=== PATIENT | male | born 1960 | race Asian ===

== ENCOUNTER 2019-04-01 10:41 | Emergency (ER) | payer BC ==
[2019-04-01] MEDS ORDERED: IBUPROFEN 600 MG TABLET PO ONE (11:51)
--- NOTE | 2019-04-01 11:51 | ER Document Report ---
ED Fall - General Chief Complaint: Fall Stated Complaint: FALL Time Seen by Provider: 04/01/19 11:43 TRAVEL OUTSIDE OF THE [place] IN LAST 30 DAYS: No - HPI Notes: Patient is a 58-year-old male that presents to the emergency department for chief complaint of right rib pain. Patient does speak some Faroese but is being assisted by family and translating. I did offer formal translation services which were declined. Family states patient was walking yesterday and tripped falling sideways and landing on his right side. He hit his right rib cage on the ground. He did not lose consciousness or hit his head. Patient has had a sharp pain in his right posterior rib cage since the fall. The pain is worse with movement and deep inspiration. He denies any shortness of breath or difficulty breathing. He denies any nausea, vomiting, numbness, weakness and vision changes. Patient also states his neck feels stiff when moving. Patient did take Tylenol 1000 mg at 830 this morning with some symptomatic improvement Past Medical History: Reviewed in chart Past Surgical History: Reviewed in chart Social History: Lives at home independently with family. Denies drugs alcohol or tobacco Family History: Reviewed and noncontributory for presenting illness Allergies: Reviewed, see documented allergy list. REVIEW OF SYSTEMS: CONSTITUTIONAL : No fever No chills No diaphoresis No recent illness EENT: No vision changes No congestion No sore throat CARDIOVASCULAR: No chest pain No palpitations RESPIRATORY: No shortness of breath No cough No difficulty breathing GASTROINTESTINAL: No abdominal pain No nausea No vomiting No diarrhea GENITOURINARY: No dysuria No hematuria No difficulty urinating MUSCULOSKELETAL: No back pain No leg pain Neck pain Right rib pain No arm pain SKIN: No rashes No lesions LYMPHATIC: No swollen, enlarged glands. NEUROLOGICAL: No lightheadedness No headache No weakness No paresthesias PSYCHIATRIC: No anxiety No depression PHYSICAL EXAMINATION: Vital signs reviewed, nursing noted reviewed. GENERAL: Well-appearing, well-nourished and in no acute distress. HEAD: Atraumatic, normocephalic. EYES: Eyes appear normal, extraocular movements intact, sclera anicteric, conjunctiva are normal. ENT: nares patent, oropharynx clear without exudates. Moist mucous membranes. NECK: Mild bilateral paraspinal muscle tenderness, no midline cervical spine tenderness, normal range of motion, supple without lymphadenopathy LUNGS: Tenderness to palpation of the right posterior ribs without overlying ecchymosis, abrasion, crepitus or flail segment. Breath sounds clear to auscultation bilaterally and equal. No wheezes rales or rhonchi. HEART: Regular rate and rhythm without murmurs ABDOMEN: Soft, nontender, normoactive bowel sounds. No rebound, guarding, or rigidity. No masses appreciated. EXTREMITIES: Nontender, good range of motion, no pitting or edema. NEUROLOGICAL: No focal neurological deficits. Moves all extremities spontaneously Motor and sensory grossly intact on exam. PSYCH: Normal mood, normal affect. SKIN: Warm, Dry, normal turgor, no rashes or lesions noted on exposed skin - Related data Allergies/Adverse Reactions: No Known Allergies Allergy (Verified 04/01/19 11:05) Home Medications: tyleno 1 gram @0830 today, no other home meds. Past Medical History - Social History Smoking Status: Never Smoker Chew tobacco use (# tins/day): No Frequency of alcohol use: None Drug Abuse: None Family History: Reviewed & Not Pertinent Patient has suicidal ideation: No Patient has homicidal ideation: No - Immunizations Immunizations up to date: Yes Hx Diphtheria, Pertussis, Tetanus Vaccination: No Physical Exam - Vital signs Vitals: Temp Pulse Resp BP Pulse Ox 98.2 F 69 17 104/56 L 96 04/01/19 10:46 04/01/19 10:46 04/01/19 10:46 04/01/19 10:46 04/01/19 10:46 Course - Re-evaluation Re-evalutation: 04/01/19 11:51 Vitals reviewed. Nursing notes reviewed. Patient's fall was mechanical in nature and he had no loss of consciousness or syncope. He will be given Motrin for further pain management. Patient is Nexus criteria negative and not requiring imaging of his cervical spine. X-ray will be obtained of the right rib cage to evaluate for underlying fracture. Patient is in no respiratory distress and currently breathing well on room air. 04/01/19 14:20 Patient's x-ray shows fracture of ribs 3 through 7 as well as a small pneumothorax without tension. Patient also has a small pleural effusion which is likely trace hemothorax. Patient's x-ray also consistent with pulmonary contusion. He is still oxygenating well and in no acute respiratory distress. Patiently placed on 100% nonrebreather O2 to help with the pneumothorax. He did have some improvement in pain after Motrin but IV will be placed for further pain control. Patient's care was discussed with Dr. Schilling at [facility]. Given patient's extent of injury he is requiring observation at a trauma facility. Dr. Schilling accepts patient for transfer. Patient and family in agreement with plan. All questions answered. Patient stable for transfer for trauma evaluation Ribs w/Chest X-Ray 04/01/19 11:44 IMPRESSION: 1. Acute displaced right fourth, fifth, sixth, and seventh rib fractures. 2. Small right apical pneumothorax. No evidence of tension. Mild pleural thickening mid lower right chest wall may represent small pleural effusion and parenchymal contusion. - Vital Signs Vital signs: Temp Pulse Resp BP Pulse Ox 98.2 F 69 17 104/56 L 96 04/01/19 10:46 04/01/19 10:46 04/01/19 10:46 04/01/19 10:46 04/01/19 10:46 Critical Care Note - Critical Care Note Total time excluding time spent on procedures (mins): 35 Comments: Critical care time 35 exclusive from separate billable procedures for a patient requiring complex medical decision making, and high potential for clinical deterioration. Time spent obtaining history from patient or surrogate, discussions with consultants, development of treatment plan with patient or surrogate, evaluation of patient's response to treatment, examination of patient, ordering and performing treatments and interventions, ordering and review of laboratory studies, re-evaluation of patient's condition, ordering and review of radiographic studies and review of old charts Discharge - Discharge Clinical Impression: Pleural effusion Pneumothorax Qualifiers: Pneumothorax type: traumatic Encounter type: initial encounter Qualified Code(s): S27.0XXA - Traumatic pneumothorax, initial encounter Multiple fractures of ribs Qualifiers: Encounter type: initial encounter Fracture type: closed Laterality: right Qualified Code(s): S22.41XA - Multiple fractures of ribs, right side, initial encounter for closed fracture Pulmonary contusion Qualifiers: Encounter type: initial encounter Laterality: right Qualified Code(s): S27.321A - Contusion of lung, unilateral, initial encounter Condition: Stable Disposition: [facility]
--- NOTE | 2019-04-01 14:14 | RADIOLOGY REPORT (SQ) ---
EXAM DESCRIPTION: RIBS RIGHT W/PA CHEST COMPLETED DATE/TIME: 04/01/2019 1:28 pm REASON FOR STUDY: rib pain, trauma COMPARISON: None. TECHNIQUE: Frontal view of the chest and additional views of the right ribs acquired. NUMBER OF VIEWS: Four view. LIMITATIONS: None. FINDINGS: FRONTAL CXR: Small right apical pneumothorax. Focal increased density mid lower right ch est wall may be on the basis of pleural thickening, pleural effusion and parenchymal contusion. No e vidence of tension pneumothorax. RIBS: Acute displaced right fourth, fifth, sixth and seventh ribs. Possible third rib fracture may also be present. OTHER: No other significant finding. IMPRESSION: 1. Acute displaced right fourth, fifth, sixth, and seventh rib fractures. 2. Small right apical pneumothorax. No evidence of tension. Mild pleural thickening mid lower righ t chest wall may represent small pleural effusion and parenchymal contusion. COMMENT: 1. The results of this examination were discussed with the emergency department provider o n 04/01/2019 at 14:05 hours. SITE OF TRAUMA/COMPLAINT MARKED/STAMP COMPLETED: NO. TECHNICAL DOCUMENTATION: JOB ID: [id number] [employer]- All Rights Reserved Reading location - IP/workstation name: [email or web address]
[2019-04-01 17:13] VITALS: BP 94/67
== END 2019-04-01 17:14 | disposition short-term general hospital (02) ==
LOC: ER 10:41
DX: S27.0XXA Traumatic pneumothorax, initial encounter (principal); S22.41XA Multiple fractures of ribs, right side, initial encounter for closed fracture; S27.321A Contusion of lung, unilateral, initial encounter; J90 Pleural effusion, not elsewhere classified; R07.89 Other chest pain; W01.0XXA Fall on same level from slipping, tripping and stumbling without subsequent striking against object, initial encounter
CPT/HCPCS: 99291